=== PATIENT | male | born 1960 | race Caucasian/White ===

== ENCOUNTER 2016-11-09 08:46 | Inpatient (IN) ==
--- NOTE | 2016-11-08 21:07 | Discharge Summary ---
<Marilyn Arteaga - Last Filed: 11/08/16 20:59> Date of Encounter: 11/08/16 - Discharge Diagnosis (1) Left rotator cuff tear arthropathy Priority: Primary Status: Acute (2) HTN (hypertension) Priority: Secondary Status: Chronic Qualifiers: Hypertension type: essential hypertension Qualified Code(s): I10 - Essential (primary) hypertension (3) Tobacco use Priority: Secondary Status: Chronic - Discharge Medications Home Medications: Amlodipine [Norvasc] 5 mg PO DAILY 08/20/16 [History] OxyCODONE Immed Rel [Roxicodone 5 MG] 5 - 10 mg PO Q6HR PRN #40 tablet 11/08/16 [Rx] Gabapentin 600 mg PO TID 11/09/16 [History] Gabapentin [Neurontin] 100 mg PO TID 11/09/16 [History] Lamotrigine 150 mg PO BID 11/09/16 [History] Allergies/Adverse Reactions: Allergies No Known Allergies Allergy (Verified 11/09/16 09:21) Primary care physician: Ab Abdul CNP - Patient Status Disposition: Home, Self-Care Condition: Good - Discharge Instructions Follow Up With: Nimesh Parker MD [Partnered Physician] - 12/07/16 3:45 pm Marilyn Arteaga PAC [Physician Night Guard] - 11/17/16 2:00 pm Ab Abdul CNP [Primary Care Provider] - - Hospital Course Hospital course: Mr. Archer is a 56 year old male - Time Spent with Patient Total time spent providing and/or coordinating discharge services: <Nimesh Parker - Last Filed: 11/09/16 14:44> Date of Encounter: 11/09/16 Time of Encounter: 14:44 - Discharge Diagnosis (1) Left rotator cuff tear arthropathy Priority: Primary Status: Acute (2) HTN (hypertension) Priority: Secondary Status: Chronic Qualifiers: Hypertension type: essential hypertension Qualified Code(s): I10 - Essential (primary) hypertension (3) Tobacco use Priority: Secondary Status: Chronic Primary care physician: Ab Abdul CNP - Patient Status Functional capacity at discharge: independent ambulation Overall status at discharge: patient is progressing back to baseline - Hospital Course Hospital course: Mr. Archer is a 56 year old male The patient had an uneventful postoperative course. They received antibiotics and physical therapy and were discharged in stable condition. There will follow -up in the office in 2 weeks. - Time Spent with Patient Total time spent providing and/or coordinating discharge services:
[2016-11-09] MEDS ORDERED: Famotidine 20 MG/2 ML VIAL IVP ONE (09:10)
[2016-11-09] MEDS ORDERED: Ringers Solution, Lactated 1,000 ML IVC SCH ×2 (09:15→13:50)
--- NOTE | 2016-11-09 09:15 | History & Physical Report ---
Date of Encounter: 11/09/16 Time of Encounter: 09:15 24 Hour HP Update - Instructions Instructions: If the History and Physical is less than 30 days old and was completed prior to A.M. admission and or procedure and has NOT been updated on calendar day of procedure please complete this update prior to performing procedure. - Update Patient reports changes in Medical Condition: No Changes in assessment/condition: No Changes in Medication: No Preop tests/diagnostics Reviewed: Yes Surgery Remains Indicated: Yes Consent for Planned Operative Procedure(s) Verified: Yes - Pre-Operative Checklist Preoperative Checklist Indicated: No Prophylactic Antibiotic Ordered: Yes Is VTE Prophylaxis Indicated?: Yes
--- NOTE | 2016-11-09 09:26 | Anesthesia Evaluation PreOp ---
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 Anesthesia History: No Prior Anesthetic Complications, Past Anesthesia (ACL) Alcohol Use: none Drug use: none Medications and Allergies Amlodipine [Norvasc] 5 mg PO DAILY 08/20/16 [History] OxyCODONE Immed Rel [Roxicodone 5 MG] 5 - 10 mg PO Q6HR PRN #40 tablet 11/08/16 [Rx] Gabapentin [Gabapentin] 600 mg PO TID 11/09/16 [History] Gabapentin [Neurontin] 100 mg PO TID 11/09/16 [History] Lamotrigine [Lamotrigine] 150 mg PO BID 11/09/16 [History] Allergies No Known Allergies Allergy (Verified 11/09/16 09:21) - Meds/Allergy Pre-op Review Medications Reviewed: Yes Allergies Reviewed: Yes Beta Blockers on Current Med List: No Anesthesia Results - Labs Laboratory Tests 10/31/16 10/31/16 09:00 09:00 Hgb 15.0 Hct 45.0 Plt Count 371 Sodium 138 Potassium 4.5 BUN 8 Creatinine 0.95 - Imaging EKG: report reviewed (nsr) Anesthesia Exam Selected Entries 11/09/16 09:13 Temperature 98.0 F Pulse Rate 65 Respiratory Rate 18 Blood Pressure 99/71 O2 Sat by Pulse Oximetry 97 Height: 65in Weight: 143lbs NPO (# of Hours): 8 Pain Scale: 0 Pain Scale Used: Numeric (1 - 10) - HEENT Pupil (Motor): EOMI Mallampati: II Teeth: Normal Oral Opening: Greater than 3 - BREAKER TABLE WORKER LOC: Oriented 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 Questions answered and agrees to proceed)
[2016-11-09] MEDS ORDERED: Albuterol 2.5 MG/3 ML NEBULIZER IH ONE (09:27)
[2016-11-09] MEDS ORDERED: CeFAZolin Pre 2,000 MG/100 ML 2,000 MG/100 ML BAG IVPB ONE (09:30)
[2016-11-09] MEDS ORDERED: *HR* Midazolam HCl 2 MG/2 ML VIAL ONE (09:43)
[2016-11-09] MEDS ORDERED: *HR* Propofol 200 MG/20 ML VIAL IVP ONE (09:43)
[2016-11-09] MEDS ORDERED: *HR* FentaNYL (PF) 100 MCG/2 ML VIAL ONE (09:43)
[2016-11-09] MEDS ORDERED: Bupivacaine/Clonidine Syringe 1 EACH SYRINGE ONE (09:55)
[2016-11-09] MEDS ORDERED: ROPIVACAINE HCL/PF 0.5% 30 ML VIAL ONE (09:56)
[2016-11-09] MEDS ORDERED: Tetracaine/PF 20 MG/2 ML AMPUL SPINA ONE (09:56)
[2016-11-09] MEDS ORDERED: Dexamethasone 4 MG/ML VIAL ONE (10:30)
[2016-11-09] MEDS ORDERED: Ondansetron 4 MG/2 ML VIAL ONE (10:30)
--- NOTE | 2016-11-09 10:35 | Anesthesia Procedures ---
Date of Encounter: 11/09/16 Time of Encounter: 10:33 Procedures: Anesthesia - Nerve Block Procedure Date: 11/09/16 Time: 10:33 Allergies/Adv Reactions: Allergies No Known Allergies Allergy (Verified 11/09/16 09:21) Pre-op Diagnosis: left rotator cuff arthropathy Surgical Procedure: left shoulder reverse bsll Checklist: Correct Patient Identifier, Correct procedure, History checked Correct side: Left Blood Thinner: No Monitor Applied: EKG, BP, Pulse Oximetry Supplemental Oxygen via Nasal Cannula (L/min): 2 Sedation: Versed (mg): 2 Sedation: Fentanyl (mcg): 100 Indication: Post Op Analgesia Pre-op Neuro Deficits: No Block Type: Supraclavicular Catheter placed: No Sterile Technique: Yes Ultrasound used: Yes Anatomy identified: Yes Visual spread of Local: Yes Neuro Stimulation: No Blood on Needle Aspiration: No Smooth Injection of Local: Yes Pain with Injection of Local: No Prep: Chlorhexadine Needle: 22 x 50 mm Stimuplex Local: Ropivacaine (0.5% ) Volume (cc): 30 Number of Attempts: 1 Complications: None/effective block Vitals: Vital Signs/O2 Sat, Most Current Temp Pulse Resp BP Pulse Ox 98.0 F 75 16 106/74 96 11/09/16 09:54 11/09/16 10:31 11/09/16 10:31 11/09/16 10:31 11/09/16 10:31 Comments: peripheral nerve block with ultrasound for postoperative pain relief per dr lua's request
[2016-11-09] MEDS ORDERED: *HR* HYDROmorphone (PF) 1 MG/ML SYRINGE IVP PRN ×2 (11:09→13:50)
--- NOTE | 2016-11-09 11:27 | Orthopedic Operative Note ---
Date of procedure: 11/09/16 Pre-op diagnosis: Left shoulder cuff tear arthropathy Post-op diagnosis: same Procedure: Procedure: Left Total Shoulder Replacment Reverse, biceps tenodesis Estimated blood loss: 100 cc Hardware:Arthrex large glenoid baseplate, 2 4.5 screws. 1 6.5 screw, lateral glenosphere, 9 humeral stem, poly insert 6 Exam Under anesthesia: Full motion and no instability Procedural Notes: Patient with an irreparable tear supraspinatus subscapularis, Operative procedure: The patient was brought to the operating room and placed on the operating room table. After general anesthesia was administered the operative shoulder was examined. Findings were noted. The patient was placed in the modified beachchair position. All pressure points were padded appropriately. And the head was stabilized in the neutral position. The operative extremity was prepped and draped in the sterile surgical fashion. The patient received IV antibiotics prior to skin incision. A standard deltopectoral approach was made to the operative shoulder. Incision was made to the skin and subcutaneous tissue,hemo stasis was obtained with Bovie cautery. Using careful blunt dissection the cephalic vein was identified and mobilized medially. The deltopectoral interval was developed and the clavipectoral fascia was incised. The subscap was normal. The humerus was dislocated patient noted to have irreparable tear supraspinatus tendon, and the humeral cut was made along the anatomic neck. Anterior and posterior Bankart retractors were placed to expose the glenoid. The glenoid guide was seated and the centering hole was made. It was reamed with the appropriate large reamer. The large baseplate was seated and secured with (2) 4.5 screws and one 6.5 screw. The baseplate was irrigated and dried and the 42 lateral Glenosphere was seated and secured with the Reich taper. The Reich taper was tested and found to be secure the humerus was redislocated and prepared with the diaphyseal reamers, followed by a broaching process up to the appropriate size 9 in the patient's anatomic version. The metaphyseal reamer was then utilized. Trial reduction found the shoulder to be relocatable. Trial components were removed and drill holes were placed in the lesser tuberosity. They were filled with #5 FiberWire suture incorporating the biceps tendon. These sutures were used for a biceps tenodesis. The appropriate 9 stem was impacted in place in the patient's anatomic version. Trial reduction found the shoulder to be relocatable and stable with the appropriate 6. Trial component was removed and the real 6 was seated and secured the shoulder was reduced. The shoulder had excellent motion and excellent stability and no evidence of dislocation. The deep tissue was irrigated with pulse irrigation. The subscap was repaired incorporating the biceps tendon for biceps tenodesis and a subscap repair. The deltopectoral interval was closed with a running #1 PDS suture, subcutaneous tissue was irrigated and closed with 0 PDS suture, the skin was closed with Dermabond. The patient was placed in a sterile dressing, abduction brace and extubated. The patient was then transferred to the recovery room in stable condition. Anesthesia: CHUY Surgeon: Nimesh Parker Development Educator: Marilyn Arteaga Condition: stable Disposition: PACU
[2016-11-09 12:31] LABS: Hematocrit 38.6 % (37.5-50.1); Hemoglobin 12.7 g/dL (12.9-16.9)
--- NOTE | 2016-11-09 12:39 | Anesthesia Evaluation Post Op ---
Date of Encounter: 11/09/16 Time of Encounter: 12:40 - Vital Signs Vital Signs: Vital Signs/O2 Sat/Glucose, Most Current Temp Pulse Resp BP Pulse Ox 11/09/16 12:19 97.6 F 62 16 94/75 98 11/09/16 12:09 97.6 F 64 13 93/70 98 11/09/16 11:59 68 16 99/68 97 11/09/16 11:49 75 16 113/75 97 11/09/16 11:39 97.5 F L 71 16 111/78 100 11/09/16 10:31 75 16 106/74 96 11/09/16 10:18 71 18 112/76 99 11/09/16 09:54 98.0 F 65 18 99/71 97 11/09/16 09:13 98.0 F 65 18 99/71 97 - Lungs Lungs: Clear Ascult./Percussion - Airway Airway: Non-obstructed - Cardiovascular Regular Rate - Mental Status Mental Status: Alert & Oriented, Answers Appropriately - Pain Pain Scale: 0 - Nausea Vomiting Nausea Vomiting: Not Present - Hydration Hydration: Ice chips - Discharge PostOp Status: Transfer Patient to floor
[2016-11-09] MEDS ORDERED: Sennosides 8.6 MG TABLET PO PRN (13:50)
[2016-11-09] MEDS ORDERED: Acetaminophen 325 MG TABLET PO PRN (13:50)
[2016-11-09] MEDS ORDERED: Ondansetron 4 MG/2 ML VIAL IVP PRN (13:50)
[2016-11-09] MEDS ORDERED: *HR* OxyCODONE Immed Rel 5 MG TABLET PO PRN ×2 (13:50)
[2016-11-09] MEDS ORDERED: Temazepam 15 MG CAPSULE PO PRN (13:50)
[2016-11-09] MEDS ORDERED: MOM Conc 10 ML UD.LIQ PO PRN (13:50)
[2016-11-09] MEDS ORDERED: Naloxone 0.4 MG/ML INJ IVP PRN (13:50)
[2016-11-09] MEDS ORDERED: *HR* Enoxaparin 30 MG/0.3 ML SYRINGE SQ SCH ×3 (14:33→18:00)
[2016-11-09] MEDS ORDERED: ceFAZolin 2,000 MG in D5% in Water 100 ML IVPB SCH ×4 (14:46→19:00)
[2016-11-09] MEDS ORDERED: Gabapentin 100 MG CAPSULE PO SCH (15:00)
[2016-11-09] MEDS ORDERED: Gabapentin 300 MG CAPSULE PO SCH (15:00)
[2016-11-09 16:46] VITALS: BP 99/75
[2016-11-09] MEDS ORDERED: lamoTRIgine 100 MG TABLET PO SCH (21:00)
[2016-11-10] MEDS ORDERED: amLODIPine 5 MG TABLET PO SCH (09:00)
== END 2016-11-09 17:37 | disposition home or self-care (01) | DRG 315 ==
LOC: SAMDAY 08:46 → 3NENU 12:57
PROVIDERS: ADMIT Orthopaedic Surgery; ATTEND Orthopaedic Surgery

== ENCOUNTER 2020-04-08 10:04 | Inpatient (IN) ==
[~2020-04-08 10:04] MED LIST: Acetaminophen IV 1,000 MG/100 ML INFUS..BTL IVPB ONE
[2020-04-08] MEDS ORDERED: CeFAZolin Syr 2,000MG/20 ML 2,000 MG/20 ML SYRINGE IVPB ONE (10:21)
[2020-04-08] MEDS ORDERED: *HR* Propofol 200 MG/20 ML VIAL IVP ONE ×2 (10:24→13:24)
[2020-04-08] MEDS ORDERED: *HR* Succinylcholine 200 MG/10 ML VIAL IVP ONE ×2 (10:24→13:28)
[2020-04-08] MEDS ORDERED: Lidocaine -MPF 2% 2 ML VIAL ONE ×2 (10:24→13:24)
[2020-04-08] MEDS: Ringers Solution, Lactated 1,000 ML IVC SCH ×3 (10:32→20:07)
[2020-04-08] MEDS ORDERED: *HR* OxyCODONE Immed Rel 5 MG TABLET PO PRN (11:19)
[2020-04-08] MEDS ORDERED: Ondansetron 4 MG/2 ML VIAL IVP ONE (11:19)
[2020-04-08] MEDS ORDERED: *HR* HYDROmorphone PF 0.5 MG/0.5 ML SYRINGE IVP PRN (11:19)
[2020-04-08] MEDS ORDERED: *HR* FentaNYL (PF) 100 MCG/2 ML VIAL ONE ×2 (12:59→13:24)
[2020-04-08] MEDS ORDERED: *HR* Midazolam HCl 2 MG/2 ML VIAL ONE ×2 (13:00→13:24)
[2020-04-08] MEDS ORDERED: Ropivacaine/PF 0.5% 30 ML VIAL ONE (13:01)
[2020-04-08] MEDS ORDERED: ROPIVACAINE/PF/NS 0.25% 1 EACH SYRINGE INTRAART ONE (13:02)
[2020-04-08] MEDS ORDERED: Dexamethasone 4 MG/ML VIAL ONE (13:28)
[2020-04-08] MEDS ORDERED: Lidocaine HCL 4 ML Topical Solution (Laryng-O-Jet Kit Sterile Pak) TP ONE (13:28)
[2020-04-08] MEDS ORDERED: Ondansetron 4 MG/2 ML VIAL ONE (13:28)
[2020-04-08] MEDS ORDERED: Ethanol\\Acetic Acid\\Na Ace\\Ben 1,000 ML IRRIG.SOLN IR ONE (13:29)
[2020-04-08] MEDS ORDERED: Vancomycin 1,000 MG VIAL ONE (13:29)
[2020-04-08] MEDS ORDERED: EPHEDrine 50 MG/ML VIAL ONE (13:48)
[2020-04-08 17:05] LABS: Hematocrit 35.6 % (37.5-50.1); Hemoglobin 11.5 g/dL (12.9-16.9)
[2020-04-08] MEDS ORDERED: *HR* Dextrose 50 % in Water (Vial) 50 ML VIAL IVP PRN (17:22)
[2020-04-08] MEDS ORDERED: MOM Conc 10 ML UD.LIQ PO PRN (17:22)
[2020-04-08] MEDS ORDERED: Sennosides 8.6 MG TABLET PO PRN (17:22)
[2020-04-08] MEDS ORDERED: D5% in Water 1,000 ML IVC PRN (17:22)
[2020-04-08] MEDS ORDERED: Dextrose Gel 15 GM/37.5 ML TUBE PO PRN ×2 (17:22)
[2020-04-08] MEDS ORDERED: Ondansetron 4 MG/2 ML VIAL IVP PRN (17:22)
[2020-04-08] MEDS ORDERED: *HR* Enoxaparin 30 MG/0.3 ML SYRINGE SQ SCH ×2 (18:00)
[2020-04-08] MEDS ORDERED: Nicotine 21 MG PATCH.TD24 TD SCH (19:00)
[2020-04-08] MEDS: Insulin LISPRO 300 UNITS/3 ML VIAL SQ SCH (19:26)
[2020-04-08] MEDS: Gabapentin 300 MG CAPSULE PO SCH ×2 (19:28→19:43)
[2020-04-08] MEDS: *HR* OxyCODONE/APAP 5/325 TABLET PO PRN (19:42)
[2020-04-08] MEDS: CeFAZolin 2 GM/120 ML BAG IVPB SCH (19:43)
[2020-04-08] MEDS: lamoTRIgine 100 MG TABLET PO SCH (19:43)
[2020-04-08] MEDS ORDERED: Insulin LISPRO 300 UNITS/3 ML VIAL SQ SCH (21:00)
[2020-04-09 01:20] LABS: Hematocrit 29.8 % (37.5-50.1)
[2020-04-09 01:22] LABS: Hemoglobin 9.5 g/dL (12.9-16.9)
[2020-04-09] MEDS: *HR* OxyCODONE Immed Rel 5 MG TABLET PO PRN ×3 (01:32→13:18)
[2020-04-09 01:42] LABS: BUN/Creatinine Ratio 13 (6-26); Blood Urea Nitrogen 10 mg/dL (8-23); Calcium 7.8 mg/dL (8.6-10.3); Carbon Dioxide 29 mEq/L (23-29); Chloride 106 mEq/L (98-107); Glucose 104 mg/dL (70-105); Osmolality,Calculated 287 (280-300); Sodium 139 mEq/L (136-145); eGFR For African Americans > 60 (> 60); eGFR For Non-African Americans > 60 (> 60)
[2020-04-09] MEDS: *HR* OxyCODONE/APAP 5/325 TABLET PO PRN (03:14)
[2020-04-09] MEDS: CeFAZolin 2 GM/120 ML BAG IVPB SCH (05:39)
[2020-04-09] MEDS: Acetaminophen IV 1,000 MG/100 ML INFUS..BTL IVPB SCH ×2 (05:39→11:43)
[2020-04-09] MEDS: Ketorolac 30 MG/ML VIAL IVP PRN ×2 (05:43→13:18)
[2020-04-09] MEDS: Ringers Solution, Lactated 1,000 ML IVC SCH (05:44)
[2020-04-09] MEDS: lamoTRIgine 100 MG TABLET PO SCH (08:05)
[2020-04-09] MEDS: Gabapentin 300 MG CAPSULE PO SCH ×2 (08:05→13:17)
[2020-04-09] MEDS: Insulin LISPRO 300 UNITS/3 ML VIAL SQ SCH ×2 (08:41→12:28)
[2020-04-09] MEDS ORDERED: amLODIPine 5 MG TABLET PO SCH (09:00)
[2020-04-09 11:13] VITALS: BP 104/68
== END 2020-04-09 14:37 | disposition home or self-care (01) | DRG 322 ==
LOC: SAMDAY 10:04 → 3NENU 17:21
PROVIDERS: ADMIT Orthopaedic Surgery; ATTEND Orthopaedic Surgery